=== PATIENT | female | born 1955 | race Caucasian/White ===

== ENCOUNTER 2017-03-14 04:50 | Emergency (ER) | payer OTHER ==
[2017-03-14 05:00] VITALS: BMI 26.6
[2017-03-14] MEDS ORDERED: FAMOTIDINE 20 MG/50 ML IVPB 50 ML IVPB ONE ×2 (05:29)
[2017-03-14] MEDS ORDERED: ONDANSETRON 4 MG/2 ML VIAL IVPUSH ONE (05:29)
[2017-03-14] MEDS ORDERED: PANTOPRAZOLE SODIUM 40 MG VIAL ONE ×2 (05:29→05:30)
[2017-03-14] MEDS ORDERED: ONDANSETRON 4 MG/2 ML VIAL ONE (05:29)
[2017-03-14] MEDS ORDERED: PANTOPRAZOLE SODIUM 40 MG in SODIUM CHLORIDE 100 ML IVPB ONE (05:29)
[2017-03-14] MEDS ORDERED: SODIUM CHLORIDE 0.9% 1000 ML INFUS.BAG IV ONE (05:29)
[2017-03-14 05:35] LABS: BASOPHIL 0.5 % (0-2.0); EOSINOPHIL 0.6 % (0-4.5); MCH 27.1 pg (25.7-33.7); MCHC 32.8 g/dl (32.0-36.0); MEAN CELL VOLUME 82.7 fl (80-96); MEAN PLT VOLUME 9.1 fl (7.5-11.1); NEUTROPHILS 77.5 % (42.8-82.8); PLATELET COUNT 336 K/MM3 (134-434); RDW 15.4 % (11.6-15.6); WHITE BLOOD COUNT 15.1 K/mm3 (4.0-10.0)
--- NOTE | 2017-03-14 05:35 | PDOC ---
Attending Attestation - Resident Resident Name: Dino Friedman - ED Attending Attestation I have performed the following: I have examined & evaluated the patient, The case was reviewed & discussed with the resident, I agree w/resident's findings & plan, Exceptions are as noted - HPI HPI: 03/17/17 19:57 Pt c/o chest pain, with slight medical history. - Physicial Exam PE: 03/14/17 05:34 *Physical Exam General Appearance: Yes: Appropriately Dressed. No: Apparent Distress, Intoxicated HEENT: positive: EOMI, AGAPITO, Normal ENT Inspection, Normal Voice, TMs Normal, Pharynx Normal. negative: Pale Conjunctivae, Photophobia, Scleral Icterus (R), Scleral Icterus (L) Neck: positive: Trachea midline, Normal Thyroid, Supple. negative: Tender, Rigid, Carotid bruit, Stridor, Lymphadenopathy (R), Lymphadenopathy (L), Thyromegaly Respiratory/Chest: positive: Lungs Clear, Normal Breath Sounds. negative: Chest Tender, Respiratory Distress, Accessory Muscle Use, Labored Respiration, RES, Crackles, Rales, Rhonchi, Stridor, Wheezing, Dullness Cardiovascular: positive: Regular Rhythm, Regular Rate, S1, S2. negative: Edema , JVD, Murmur, Bradycardia, Tachycardia Vascular Pulses: Dorsalis-Pedis (R): 2+, Doralis-Pedis (L): 2+ Gastrointestinal/Abdominal: positive: Normal Bowel Sounds, Flat, Soft. negative : Tender, Organomegaly, Pulsatile Mass, Increased Bowel Sounds, Decreased BS, Distended, Guarding, Rebound, Hernia, Hepatomegaly, Spleenomegaly Lymphatic: negative: Adenopathy, Tenderness Musculoskeletal: positive: Normal Inspection. negative: CVA Tenderness, Decreased Range of Motion Extremity: positive: Normal Capillary Refill, Normal Inspection, Normal Range of Motion, Pelvis Stable. negative: Tender, Pedal Edema, Swelling, Erythema Integumentary: positive: Normal Color, Dry, Warm. negative: Cyanotic, Erythema , Jaundice, Rash Neurologic: positive: chief writer II-XII NML intact, Fully Oriented, Alert, Normal Mood/ Affect, Motor Strength 5/5. negative: EOM Palsy, Facial Droop, Sensory Deficit - Medical Decision Making 03/17/17 19:56 All studies including EKG and chest xray were all negative. Pt was discharged.
[2017-03-14 05:56] LABS: INR 1.02 (0.82-1.09); PROTHROMBIN TIME (PATIENT) 11.2 SEC (9.98-11.88)
[2017-03-14 06:19] LABS: ALBUMIN 3.8 g/dl (3.4-5.0); ANION GAP 10 (8-16); BILIRUBIN,TOTAL 0.5 mg/dL (0.2-1.0); CALCIUM 8.8 mg/dL (8.5-10.1); CO2 26 mmol/L (21-32); CREATININE 0.8 mg/dL (0.55-1.02); GLUCOSE,RANDOM 112 mg/dL (74-106); SGOT/AST 15 U/L (15-37); SGPT/ALT 33 U/L (12-78); TOT PROT 7.3 g/dl (6.4-8.2)
[2017-03-14 06:21] LABS: ALK PHOS 83 U/L (45-117); CPK 89 IU/L (26-192); TROPONIN I < 0.02 ng/ml (0.00-0.05)
--- NOTE | 2017-03-14 06:22 | PDOC ---
History of Present Illness - General Chief Complaint: Chest Pain Stated Complaint: CHEST PAIN Time Seen by Provider: 03/14/17 04:59 History Source: Patient Exam Limitations: No Limitations - History of Present Illness Initial Comments: 03/14/17 06:17 The patient is a 61F with a PMH of DM, heart dz (arteriosclerosis and failure of last stress test 2.5 years ago), asthma, and DM who presents with 3 hours of chest pain. The pain started in her epigastric region as a burning pain and then radiated to her chest and was a pressure-like pain which radiated to her back and ann. The pain is worse when laying down. She had associated nausea but no diaphoresis. She is not sick, had no sick contacts and no recent travel. Electromyographic Technician: Dr. Raquel Polanco PCP: Dr. Gee All: none Soc: drinks 12 oz vodka drink, does not smoke or use drugs Past History - Past Medical History Allergies/Adverse Reactions: Allergies Allergy/AdvReac Type Severity Reaction Status Date / Time citric acid [From DDAVP] Allergy Severe seizure, Verified 03/14/17 04:58 coma, potential desmopressin acetate Allergy Severe seizure, Verified 08/05/14 16:16 [From DDAVP] coma, potential sodium phosphate,dibasic Allergy Severe seizure, Verified 08/05/14 16:16 [From DDAVP] coma, potential Home Medications: Ambulatory Orders Oxycodone HCl/Acetaminophen [Percocet 5-325 mg Tablet -] 1 tab PO Q6H PRN #7 tablet 08/05/14 Aspirin [ASA -] 81 mg PO Q2D 03/14/17 Atorvastatin Ca [Lipitor] 20 mg PO DAILY 03/14/17 Levothyroxine [Synthroid -] 75 mcg PO DAILY 03/14/17 Asthma: Yes Cardiac Disorders: Yes (3 BLOCKAGES, AORTAL REGURGIATION) Diabetes: (IMPAIRED GLUCOSE TOLERANCE) Hypercholesterolemia: Yes - Surgical History Abdominal Surgery: Yes (RALPH SILVA) - Immunization History Immunization Up to Date: Yes - Psycho/Social/Smoking Cessation Hx Suicidal Ideation: No Smoking History: Former smoker Have you smoked in the past 12 months: No If you are a former smoker, when did you quit?: 25 years ago Information on smoking cessation initiated: No Hx Alcohol Use: No Drug/Substance Use Hx: No Substance Use Type: Alcohol Review of Systems - Review of Systems Able to Perform ROS?: Yes Is the patient limited Lao proficient: No Constitutional: No: Chills, Fever Respiratory: Yes: Shortness of Breath. No: Cough Cardiac (ROS): Yes: Chest Pain, Palpitations ABD/GI: Yes: Nausea, Other (epigastric abd pain). No: Vomiting : No: Burning, Dysuria, Discharge Neurological: No: Headache, Numbness, Tingling, Weakness *Physical Exam - Vital Signs Last Vital Signs Temp Pulse Resp BP Pulse Ox 97.1 F L 88 20 142/92 99 03/14/17 04:58 03/14/17 04:58 03/14/17 04:58 03/14/17 04:58 03/14/17 05:14 - Physical Exam General Appearance: Yes: Nourished, Appropriately Dressed. No: Mild Distress HEENT: positive: Normal Voice, Hearing Grossly Normal Respiratory/Chest: positive: Lungs Clear, Normal Breath Sounds. negative: Chest Tender, Respiratory Distress, Accessory Muscle Use, Labored Respiration Cardiovascular: positive: Regular Rhythm, Regular Rate, S1, S2. negative: Diastolic Murmur, Systolic Murmur Gastrointestinal/Abdominal: positive: Flat, Soft. negative: Tender, Protuberent , Distended, Guarding, Rebound Musculoskeletal: negative: CVA Tenderness, CVA Tenderness (R), CVA Tenderness (L ) Extremity: positive: Normal Capillary Refill, Normal Inspection, Normal Range of Motion. negative: Swelling Integumentary: positive: Dry, Warm. negative: Clammy Neurologic: positive: Fully Oriented, Alert, Normal Mood/Affect Heart Score/ECG Review - ECG Impressions Normal ECG: Yes ED Treatment Course - LABORATORY CBC & Chemistry Diagram: 03/14/17 05:06 03/14/17 05:06 - ADDITIONAL ORDERS Additional order review: 03/14/17 05:06 RBC 5.00 MCV 82.7 MCHC 32.8 RDW 15.4 MPV 9.1 Neutrophils % 77.5 Lymphocytes % 15.5 D Monocytes % 5.9 Eosinophils % 0.6 Basophils % 0.5 - Medications Given in the ED: ED Medications Discontinued Medications Generic Name Dose Route Start Last Admin Trade Name Freq PRN Reason Stop Dose Admin Pantoprazole Sodium 40 mg/ 100 mls @ 200 mls/hr 03/14/17 05:29 03/14/17 05:39 Sodium Chloride IVPB 03/14/17 05:58 200 mls/hr ONCE ONE Administration Famotidine/Sodium Chloride 50 mls @ 100 mls/hr 03/14/17 05:29 03/14/17 05:39 Pepcid 20 Mg Premixed Ivpb - IVPB 03/14/17 05:58 100 mls/hr ONCE ONE Administration Ondansetron HCl 4 mg 03/14/17 05:29 03/14/17 05:40 Zofran Injection IVPUSH 03/14/17 05:30 4 mg ONCE ONE Administration Sodium Chloride 1,000 ml 03/14/17 05:29 03/14/17 05:39 Normal Saline - IV 03/14/17 05:30 1,000 ml ONCE ONE Administration Medical Decision Making - Medical Decision Making 03/14/17 06:22 The patient is a 61F with a cardiac hx who presents to the ED with 3 hours of CP. I have ordered basic labs and cardiac labs/imaging to r/o ACS. I will reassess the patient when these labs return. I also ordered IVF, protonix, and pepcid because her CP does not sound like cardiac in origin. 03/14/17 06:46 Patient's labs are negative. Pending CXR. She states that she is feeling much better. 03/14/17 06:50 Patient signed out to day team. *DC/Admit/Observation/Transfer Diagnosis at time of Disposition: Chest pain - Discharge Dispostion Disposition: HOME Condition at time of disposition: Improved - Referrals Referrals: India Gee [Primary Care Provider] - - Patient Instructions Printed Discharge Instructions: DI for Atypical Chest Pain, DI for Chest Pain - Attestations Physician Attestion: 03/17/17 07:42 I, Dr. Dino Friedman, attest that this document has been prepared under my direction and personally reviewed by me in its entirety. I further attest, that it accurately reflects all work, treatment, procedures and medical decision -making performed by me.
--- NOTE | 2017-03-14 08:25 | PDOC ---
*Physical Exam - Vital Signs Last Vital Signs Temp Pulse Resp BP Pulse Ox 97.1 F L 88 20 142/92 99 03/14/17 04:58 03/14/17 04:58 03/14/17 04:58 03/14/17 04:58 03/14/17 05:14 - Physical Exam Comments: 03/14/17 08:27 General Appearance: Yes: Nourished, Appropriately Dressed HEENT: positive: EOMI, AGAPITO Neck: positive: Tender, Normal Thyroid Respiratory/Chest: positive: Lungs Clear, Normal Breath Sounds Cardiovascular: positive: Regular Rate, S1, S2 Gastrointestinal/Abdominal: positive: Normal Bowel Sounds, Soft Integumentary: positive: Normal Color, Dry, Warm ED Treatment Course - LABORATORY CBC & Chemistry Diagram: 03/14/17 05:06 03/14/17 05:06 - ADDITIONAL ORDERS Additional order review: Laboratory Results 03/14/17 03/14/17 05:06 05:06 INR 1.02 Sodium 140 Potassium 3.6 Chloride 104 Carbon Dioxide 26 Anion Gap 10 BUN 21 H D Creatinine 0.8 Creat Clearance w eGFR > 60 Random Glucose 112 H D Calcium 8.8 Total Bilirubin 0.5 AST 15 ALT 33 D Alkaline Phosphatase 83 Creatine Kinase 89 Troponin I < 0.02 Total Protein 7.3 Albumin 3.8 03/14/17 05:06 RBC 5.00 MCV 82.7 MCHC 32.8 RDW 15.4 MPV 9.1 Neutrophils % 77.5 Lymphocytes % 15.5 D Monocytes % 5.9 Eosinophils % 0.6 Basophils % 0.5 - Medications Given in the ED: ED Medications Discontinued Medications Generic Name Dose Route Start Last Admin Trade Name Caroline PRN Reason Stop Dose Admin Pantoprazole Sodium 40 mg/ 100 mls @ 200 mls/hr 03/14/17 05:29 03/14/17 05:39 Sodium Chloride IVPB 03/14/17 05:58 200 mls/hr ONCE ONE Administration Famotidine/Sodium Chloride 50 mls @ 100 mls/hr 03/14/17 05:29 03/14/17 05:39 Pepcid 20 Mg Premixed Ivpb - IVPB 03/14/17 05:58 100 mls/hr ONCE ONE Administration Ondansetron HCl 4 mg 03/14/17 05:29 03/14/17 05:40 Zofran Injection IVPUSH 03/14/17 05:30 4 mg ONCE ONE Administration Sodium Chloride 1,000 ml 03/14/17 05:29 03/14/17 05:39 Normal Saline - IV 03/14/17 05:30 1,000 ml ONCE ONE Administration Medical Decision Making - Medical Decision Making 03/14/17 08:37 Chest X-ray shows clear lungs, normal mediastinum, sharp angle with no acute chest pathology appreciated. Patient evaluated @ bedside. States chest pain, abdominal pain and nausea completely resolved, continues to deny any shortness of breath, diaphoresis or vomiting. 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 Patient discharged home. *DC/Admit/Observation/Transfer Diagnosis at time of Disposition: Chest pain - Discharge Dispostion Disposition: HOME Condition at time of disposition: Improved - Referrals Referrals: India Gee [Primary Care Provider] - - Patient Instructions Printed Discharge Instructions: DI for Atypical Chest Pain, DI for Chest Pain - Attestations Physician Attestion: 03/14/17 08:24 I, Dr. Dorys Pruitt, attest that this document has been prepared under my direction and personally reviewed by me in its entirety. I further attest, that it accurately reflects all work, treatment, procedures and medical decision -making performed by me.
[2017-03-14 08:53] VITALS: BP 117/72; PULSE 82; TEMP 97.8
--- NOTE | 2017-03-14 10:18 | EKG ---
Test Reason : Blood Pressure : / mmHG Vent. Rate : 084 BPM Atrial Rate : 084 BPM P-R Int : 138 ms QRS Dur : 082 ms QT Int : 378 ms P-R-T Axes : 061 036 034 degrees QTc Int : 446 ms NORMAL SINUS RHYTHM POSSIBLE LEFT ATRIAL ENLARGEMENT NONSPECIFIC ST ABNORMALITY WHEN COMPARED WITH ECG OF 05-AUG-2014 18:22, NO SIGNIFICANT CHANGE WAS FOUND Confirmed by RAMESH BECERRIL MD ([id number]) on 03/14/2017 10:17:45 AM Referred By: Confirmed By:RAMESH BECERRIL MD
== END 2017-03-14 08:58 | disposition home or self-care (01) ==
LOC: JER 04:50
PROC: 3E033GC Introduction of Other Therapeutic Substance into Peripheral Vein, Percutaneous Approach (ICD-10-PCS; principal; 2017-03-14)
PROC: 3E0337Z Introduction of Electrolytic and Water Balance Substance into Peripheral Vein, Percutaneous Approach (ICD-10-PCS; 2017-03-14)
DX: R07.9 Chest pain, unspecified (principal); I50.9 Heart failure, unspecified; J45.909 Unspecified asthma, uncomplicated; I70.90 Unspecified atherosclerosis; E11.9 Type 2 diabetes mellitus without complications; Z79.4 Long term (current) use of insulin; Z88.8 Allergy status to other drugs, medicaments and biological substances; Z88.4 Allergy status to anesthetic agent; Z79.82 Long term (current) use of aspirin; Z87.891 Personal history of nicotine dependence
CPT/HCPCS: 36415; 71010-TC; 80053; 84484; 85025; 85610; 93005; 93010; 99285-25